=== PATIENT | female | born 1980 | race African-American/Black ===

== ENCOUNTER 2020-01-11 23:04 | Emergency (ER) | payer OTHER ==
[2020-01-11] MEDS ORDERED: KETOROLAC TROMETHAMINE 60 MG/2 ML VIAL IM ONE (23:08)
[2020-01-11] MEDS ORDERED: KETOROLAC TROMETHAMINE 60 MG/2 ML VIAL ONE (23:16)
--- NOTE | 2020-01-11 23:29 | PDOC ---
History of Present Illness - General Chief Complaint: Pain Stated Complaint: SLIP AND FALL Time Seen by Provider: 01/11/20 23:06 History Source: Patient Exam Limitations: No Limitations - History of Present Illness Initial Comments: 01/11/20 23:14 This is a 39-year-old female who comes in complaining of low back pain and right knee pain. Patient said she fell down approximately 5 steps 2 days ago and has had progressive discomfort. Patient said that she has not been taking anything for the pain. Patient denied hitting her head or passing out. Patient denies any neurological complaints of numbness or weakness of her legs or bowel or bladder bladder incontinence. Allergies: as per nursing notes Past Medical History: none Social history: Lives with family. No smoking. No alcohol. No illicit drugs. Surgical history: Spinal fusion of the lumbar region General: No fevers or chills, no weakness, no weight loss HEENT: No change in vision. No sore throat,. No ear pain CardioVascular: no chest discomfort. No shortness of breath Respiratory:No cough, or wheezing. Gastrointestinal: no nausea, vomiting, diarrhea or constipation, No rectal bleeding Genitourinary: No dysuria, hematuria, or frequency Musculoskeletal: Right knee pain and low back pain Neurologic: No headache, vertigo, dizziness or loss of consciousness Psychiatric: nor depression Skin: No rashes or easy bruising Endocrine: no increased thirst or abnormal weight change Allergic: no skin or latex allergy All other systems reviewed and normal GENERAL: The patient is awake, alert, and fully oriented, in no acute distress. HEENT:Head is normal with no signs of trauma. Eyes: Pupils equal, round and reactive to light, Ears, and Throat are normal. Neck is supple. No Lymphadenopathy. BACK: There is some tenderness on palpation of the lower lumbar upper sacral spine area. There is no tenderness over the sciatic notch. Neurovascular is intact. EXTREMITIES: Right knee there is some swelling and ecchymosis of the anterior portion of the right knee with tenderness on palpation of the patella. Neurovascular distally is intact. NEUROLOGICAL: Normal speech, normal gait. PSYCH: Normal mood, normal affect. SKIN: Warm, Dry, normal turgor, no rashes or lesions noted.\ Assessment and plan: This is a 39-year-old female who fell down several steps approximately 2 days ago and has had progressive discomfort. X-rays ordered of the right knee and low back area/lumbar sacral spine. Patient given Toradol 01/11/20 23:48 X-rays were reviewed by me and were negative for any acute pathology. Patient felt better after the Toradol. Patient was told to take ibuprofen or Aleve and was discharged we will follow-up with your primary care doctor Past History - Medical History Allergies/Adverse Reactions: Allergies Allergy/AdvReac Type Severity Reaction Status Date / Time No Known Drug Allergies Allergy Verified 01/11/20 23:27 Home Medications: Ambulatory Orders NK [No Known Home Medication] 01/11/20 COPD: No - Surgical History Neurologic Surgery: Yes (spinal fussion 2008) - Psycho-Social/Smoking History Smoking History: Never smoked Have you smoked in the past 12 months: No ED Treatment Course - RADIOLOGY Radiology Studies Ordered: Category Date Time Status KNEE 3 POS-RIGHT [RAD] Stat Radiology 01/11/20 23:07 Ordered SPINE-LUMBAR SACRAL [RAD] Stat Radiology 01/11/20 23:06 Ordered Discharge - Discharge Information Problems reviewed: Yes Clinical Impression/Diagnosis: Lumbar spine strain Qualifiers: Encounter type: initial encounter Qualified Code(s): S39.012A - Strain of muscle, fascia and tendon of lower back, initial encounter Contusion of right knee Qualifiers: Encounter type: initial encounter Qualified Code(s): S80.01XA - Contusion of right knee, initial encounter Disposition: HOME - Admission No - Follow up/Referral - Patient Discharge Instructions Additional Instructions: For the pain take ibuprofen 3 tablets 3 times a day with food do not take on empty stomach. Or you can take naproxen 2 tablets twice a day with food. Return to the emergency department immediately with ANY new, persistent or worsening symptoms. Continue any medications as previously prescribed by your physician. You should follow up with your primary doctor as soon as possible regarding today's emergency department visit. . Please make sure your doctor reviews the results of your emergency evaluation. Thank you for coming to the Emergency Department today for your care. It was a pleasure to see you today. Please note that your evaluation is INCOMPLETE until you follow-up with your doctor. - Post Discharge Activity
[2020-01-11 23:32] VITALS: BP 120/82; PULSE 102; TEMP 98.9; BMI 26.6
== END 2020-01-12 00:02 | disposition home or self-care (01) ==
LOC: FER 23:04
PROC: 3E0233Z Introduction of Anti-inflammatory into Muscle, Percutaneous Approach (ICD-10-PCS; principal; 2020-01-11)
DX: S39.012A Strain of muscle, fascia and tendon of lower back, initial encounter (principal); S80.01XA Contusion of right knee, initial encounter
CPT/HCPCS: 72100-TC-FY; 73562-TC-RT-FY; 81025; 99284-25